=== PATIENT | male | born 1995 | race African-American/Black ===

== ENCOUNTER 2017-07-26 05:37 | Emergency (ER) | payer SELFPAY ==
[2017-07-26 06:00] VITALS: BP 130/84
[2017-07-26] MEDS ORDERED: KETOROLAC 30 MG/ML VIAL IVP ONE (06:10)
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
[2017-07-26] MEDS ORDERED: IBUPROFEN 600 MG TAB PO ONE (06:15)
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
== END 2017-07-26 06:22 ==
LOC: ER 05:40
DX: M54.9 Dorsalgia, unspecified (principal)
CPT/HCPCS: 71045; 72100; 99283

== ENCOUNTER → 2017-07-26 | Outpatient (CLI) | payer SELFPAY | LOC: AMB 04:51 | PROVIDERS: ATTEND Nurse Practitioner | DX: M54.9 Dorsalgia, unspecified (principal); T68.XXXA Hypothermia, initial encounter; X31.XXXA Exposure to excessive natural cold, initial encounter | CPT/HCPCS: A0425; A0427 ==